=== PATIENT | male | born 1930 | race Caucasian/White ===

== ENCOUNTER → 2018-10-19 | Outpatient (CLI) | payer MEDICARE, BC ==
[~2018-10-19] MED LIST: ACE325 PO; ACET-2043 PO; BARIUM SULFATE 176 GM BTL PO ONE; BARIUM SULFATE 340 GM POWD ONE; CYCL1DRO6 OP; ERG400 PO; ERGO400T9 PO; FAM20 PO; FLAX100042 PO; FLUT16SP19 NS; GABA-503 PO; GLUC-198 PO; IBU600 PO; LEV500 PO; LOR5/325 PO; MET500 PO; METF-450 PO; NAPR-1043 PO; NAPR220C12 PO; NIA100 PO; OMEG-11 PO; OMEP-125 PO; OMEP-153 PO; OMEP10CA40 PO; OMEP40CA45 PO; OMEP40CA48 PO; PHENA200 PO; POLY17PO25 PO; TAM4 PO; TAMS0.4C70 PO; VITA100C13 PO; VITE400 PO; [UNRECOGNIZED DRUG - CODE] PO; [UNRECOGNIZED DRUG - CODE] PO; [UNRECOGNIZED DRUG - CODE] PO
--- NOTE | 2018-10-19 17:15 | RADIOLOGY IMAGING REPORT ---
FACILITY: [facility] [place] PATIENT NAME: Tong Braun : 1930 MR: [id number] V: [id number] EXAM DATE: ORDERING PHYSICIAN: WILLOW TODD TECHNOLOGIST: Location: [facility] Patient: Tong Braun : 1930 Visit/Account:[id number] Date of Sevice: 10/19/2018 Exam type: ESOPHAGRAM History: GERD and trouble swallowing pills and crackers Comparison: None. Findings: Double contrast esophagram was performed with thick and thin barium and air contrast.. There was christine e pooling of residual barium within the vallecula and piriform sinuses. No aspiration was observed. There is a small hiatal hernia and moderate narrowing noted at the lower esophageal sphincter. A 12 mm barium tablet did eventually pass through the lower esophageal sphincter however there was delaye d passage which required multiple sips of water and barium. Extensive tertiary waves were noted thro ughout the esophagus. There was at least moderate gastroesophageal reflux observed. No mucosal eros ions were identified. The fluoroscopy dose area product was 282.52 micro-Smith per meter squared IMPRESSION: 1. Small hiatal hernia with moderate narrowing at the lower esophageal sphincter. There was delayed passage of a 12 mm barium tablet which did eventually pass into the stomach. Extensive tertiary waves were noted throughout the esophagus although no mucosal erosions were identi fied There was some pooling of residual barium within the vallecula and perform sinuses although no aspira tion was observed Report Dictated By: Sarah Nunez MD at 10/19/2018 5:06 PM Report E-Signed By: Sarah Nunez MD at 10/19/2018 5:10 PM WSN:[email or web address]
== END ==
LOC: RAD 00:18
PROVIDERS: ATTEND Otolaryngology
DX: K46.1 Unspecified abdominal hernia with gangrene (principal)
CPT/HCPCS: 74220

== ENCOUNTER → 2018-12-07 | Outpatient (CLI) | payer MEDICARE, BC ==
[~2018-12-07] MED LIST changes: -BARIUM SULFATE 176 GM BTL PO ONE; -BARIUM SULFATE 340 GM POWD ONE; +CIPR-214 PO; -GABA-503 PO; +GABA-533 PO
[2018-12-07 17:07] LABS: PLATELET COUNT, AUTOMATED 264 K/uL (150-450)
== END ==
LOC: LAB 16:39
PROVIDERS: ATTEND Family Medicine
DX: E11.9 Type 2 diabetes mellitus without complications (principal); I10 Essential (primary) hypertension
CPT/HCPCS: 36415; 82310; 82374; 82435; 82565; 82947; 83036; 84132; 84295; 84520; 85025

== ENCOUNTER → 2018-12-30 | Day surgery (SDC) | payer MEDICARE, BC ==
[~2018-12-30] VITALS: Ht 170.2 cm; Wt 64.4 kg
[2018-12-30] VITALS (8 sets, daily range): BP systolic 76–128; BP diastolic 47–67
[~2018-12-30] MED LIST changes: +LIDOCAINE MPF 1% 5 ML VIAL ONE; +LIDOCAINE/SOD BICARB 8.4% SYR ID ONE; +PROPOFOL EMUL(*) 10MG/ML 20 ML 20 ML ONE
[2018-12-30] MEDS: NORMOSOL R SOLN(*) 1000 ML BAG 1,000 ML IV PRN ×2 (08:26→11:08)
--- NOTE | 2018-12-30 11:08 | Short(Outpt) Discharge Summary ---
Discharge Summary Reason for Hosp/Final Diag: (1) Dysphagia Hospital Course & Plan: 88 yo m presented for egd. he tolerated the procedure well and there were no complications. path pending. pt will be discharged home when criteria met. Discharge Instructions Home Meds Active Scripts Omeprazole (OMEPRAZOLE) 40 Mg Capsule.dr, 40 MG PO BID for 30 Days, #60 CAP 2 Refills Prov:WILLOW TODD JR, MD 11/09/18 Metformin Hcl (METFORMIN HCL) 500 Mg Tablet, 1 TAB PO BID for 90 Days, #180 TAB 4 Refills Prov:CHRISTIAN SAUCEDA MD 06/08/18 Fluticasone Prop 50 Mcg Ns (FLONASE 50 MCG NS) 16 Gm Kent.susp, 2 SPRAYS NS QDAY for 30 Days, #1 BOT 3 Refills Prov:CHRISTIAN SAUCEDA MD 06/08/18 Reported Medications Ciprofloxacin 500 Mg Tab (CIPROFLOXACIN 500 MG TAB) 500 Mg Tablet, 500 MG PO Q12H for 15 Days, #14 TAB 11/30/18 [place]-3 Fatty Acids/Fish Oil (FISH OIL 1,000 MG CAPSULE) 1 Each Capsule, 1 EACH PO DAILY, CAPSULE 03/09/18 Tamsulosin Hcl (TAMSULOSIN HCL) 0.4 Mg Cap.er.24h, 1 CAP PO BID 06/15/17 Diet: Regular Activity: As Tolerated Special Instructions: we will call you with biopsy results JUANITO SANTANA Dec 30, 2018 11:08
== END ==
LOC: OR 00:50
PROVIDERS: ATTEND Surgery
DX: K29.70 Gastritis, unspecified, without bleeding (principal); K26.9 Duodenal ulcer, unspecified as acute or chronic, without hemorrhage or perforation; K21.9 Gastro-esophageal reflux disease without esophagitis; E11.9 Type 2 diabetes mellitus without complications; Z79.84 Long term (current) use of oral hypoglycemic drugs
CPT/HCPCS: 36416; 43239; 43249; 82948; 87077; 88305; 88313; C1726; J2001; J2704

== ENCOUNTER → 2019-02-08 | Outpatient (CLI) | payer MEDICARE, BC ==
[~2019-02-08] MED LIST changes: -LIDOCAINE MPF 1% 5 ML VIAL ONE; -LIDOCAINE/SOD BICARB 8.4% SYR ID ONE; -PROPOFOL EMUL(*) 10MG/ML 20 ML 20 ML ONE
== END ==
LOC: LAB 10:28
PROVIDERS: ATTEND Otolaryngology
DX: K20.0 Eosinophilic esophagitis (principal)
CPT/HCPCS: 36415; 86003

== ENCOUNTER → 2019-03-08 | Outpatient (CLI) | payer MEDICARE, BC | LOC: LAB 15:00 | PROVIDERS: ATTEND Family Medicine | DX: E11.9 Type 2 diabetes mellitus without complications (principal) | CPT/HCPCS: 36415; 82040; 82247; 82310; 82374; 82435; 82565; 82947; 83036; 84075; 84132; 84155; 84295; 84450; 84460; 84520 ==

== ENCOUNTER → 2019-04-05 | Outpatient (CLI) | payer MEDICARE, BC ==
--- NOTE | 2019-04-05 15:05 | RADIOLOGY IMAGING REPORT ---
FACILITY: [facility] [place] PATIENT NAME: Tong Braun : 1930 MR: [id number] V: [id number] EXAM DATE: ORDERING PHYSICIAN: BECKY LORENZANA TECHNOLOGIST: Location: [facility] - [place], [place] Patient: Tong Braun : 1930 Visit/Account:[id number] Date of Sevice: 04/05/2019 US ABD LIMITED ULTRASOUND, bladder ultrasound HISTORY: Incomplete bladder emptying, incontinence COMPARISON: None. FINDINGS: The urinary bladder prevoid volume was 190 mL. The post void residual was 132 mL. Bilateral uretera l jets are present. Incidentally noted is a right-sided bladder diverticulum measuring 1.6 x 2 x 1.2 cm. The prostate gland appeared slightly inhomogeneous impinging upon the floor the bladder and sirisha sured 3.8 x 4 x 6.2 cm IMPRESSION: Post void bladder residual 132 mL Right-sided bladder diverticulum Prostate gland appears prominent, inhomogeneous and impinged upon the floor the urinary bladder Report Dictated By: Sarah Nunez MD at 04/05/2019 2:37 PM Report E-Signed By: Sarah Nunez MD at 04/05/2019 3:00 PM WSN:[email or web address]
== END ==
LOC: US 00:41
DX: R39.14 Feeling of incomplete bladder emptying (principal)
CPT/HCPCS: 76705

== ENCOUNTER → 2019-04-26 | Outpatient (CLI) | payer MEDICARE, BC ==
[~2019-04-26] MED LIST changes: +FINA5TAB67 PO; -OMEP-125 PO; +OMEP-126 PO; -OMEP10CA40 PO; +OMEP10CA41 PO
== END ==
LOC: US 07:00
PROVIDERS: ATTEND Family Medicine
DX: I07.1 Rheumatic tricuspid insufficiency (principal); I35.0 Nonrheumatic aortic (valve) stenosis
CPT/HCPCS: 93306

== ENCOUNTER 2019-05-08 01:34 | Observation (INO) | payer MEDICARE, BC ==
[~2019-05-08] VITALS: Ht 170.2 cm; Wt 63.5 kg
[2019-05-08] VITALS (13 sets, daily range): BP systolic 102–134; BP diastolic 47–82
[2019-05-08] MEDS ORDERED: LIDOCAINE/SOD BICARB 8.4% SYR ID ONE (10:30)
[2019-05-08] MEDS ORDERED: FAMOTIDINE 20 MG TAB PO ONE (10:30)
[2019-05-08] MEDS ORDERED: MIDAZOLAM 2 MG/2 ML VIAL IVP PRN (10:30)
[2019-05-08] MEDS ORDERED: NORMOSOL R SOLN(*) 1000 ML BAG 1,000 ML IV PRN (10:30)
[2019-05-08] MEDS ORDERED: cefTRIAXone(*) 1 GM VIAL 1 GM in NS(*) 0.9% 100 ML MINI-BAG 100 ML IVPB ONE (10:30)
[2019-05-08] MEDS ORDERED: PROPOFOL EMUL(*) 10MG/ML 20 ML 20 ML ONE (10:52)
[2019-05-08] MEDS ORDERED: ONDANSETRON 4 MG/2 ML VIAL ONE (10:52)
[2019-05-08] MEDS ORDERED: DEXAMETHASONE SOD 4 MG/ML VIAL ONE (10:52)
[2019-05-08] MEDS ORDERED: LIDOCAINE MPF 1% 5 ML VIAL ONE (10:52)
[2019-05-08] MEDS ORDERED: fentaNYL CITR 100 MCG/2 ML AMP ONE (10:53)
[2019-05-08] MEDS ORDERED: VANCOMYCIN(*) 1 GM VIAL 1 GM in NS(*) 0.9% 250 ML BAG 250 ML IVPB ONE (11:35)
[2019-05-08] MEDS ORDERED: MIDAZOLAM 2 MG/2 ML VIAL ONE (11:46)
[2019-05-08 11:48] LABS: PLATELET COUNT, AUTOMATED 193 K/uL (150-450)
--- NOTE | 2019-05-08 12:12 | EKG ---
FACILITY: [facility] PATIENT NAME: KAROLINA JACKSON : [id number] MR: [id number] V: [id number] EXAM DATE: ORDERING PHYSICIAN: JACINDA RODRIGUEZ TECHNOLOGIST: LIVAN Test Reason : PREOP-CYSTO Blood Pressure : / mmHG Vent. Rate : 071 BPM Atrial Rate : 071 BPM P-R Int : 190 ms QRS Dur : 084 ms QT Int : 386 ms P-R-T Axes : 048 -60 029 degrees QTc Int : 419 ms Sinus rhythm Left axis No acute appearing findings No previous ECGs available Confirmed by TRE PERAZA ([id number]) on 05/08/2019 4:16:36 PM Referred By: HARRIETT Confirmed By:TRE PERAZA
[2019-05-08] MEDS ORDERED: BELLADONNA ALK/OPIUM 60MG SUPP PR ONE (12:22)
[2019-05-08] MEDS ORDERED: MINERAL OIL LIGHT 10 ML VIAL ONE (12:22)
[2019-05-08 14:24] LABS: PLATELET COUNT, AUTOMATED 179 K/uL (150-450)
[2019-05-08] MEDS ORDERED: GLYCOPYRROLATE 0.2MG/ML 1 ML INJ ONE (14:40)
--- NOTE | 2019-05-08 15:38 | Hospitalist Progress Note ---
Subjective Progress Notes Subjective Patient seen post-op. Reviewed PMHx (type 2 DM) and medications (metformin). He reports doing well. No CP/abdominal pain/SOB/FUNG/nausea. Physical Exam Vital Signs Date Time Temp Pulse Resp B/P (MAP) Pulse Ox O2 Delivery O2 Flow Rate FiO2 05/08/19 15:20 72 18 90 05/08/19 15:20 97.7 118/59 (78) Room Air General Appearance: Alert, Awake Cardiovascular: Regular Rate and Rhythm (with soft systolic murmur) Respiratory: Clear to Auscultation Result Diagram: 05/08/19 1417 05/08/19 1417 Assessment and Plan Problems: (1) DM (diabetes mellitus) Status: Chronic Assessment & Plan: Will place on ADA diet, resume his metformin, monitor glucose, and use SSI as needed. (2) BPH (benign prostatic hyperplasia) Status: Chronic Assessment & Plan: S/P TURP with Dr. Esqueda. Problem Qualifiers (1) DM (diabetes mellitus): Diabetes mellitus type: type 2 TRE PERAZA MD May 08, 2019 15:38
[2019-05-08] MEDS ORDERED: GLYCOPYRROLATE 0.2MG/ML 1 ML INJ IVP PRN (15:55)
[2019-05-08] MEDS ORDERED: PROPANTHELINE BROMIDE 15MG TAB PO PRN (15:55)
[2019-05-08] MEDS ORDERED: PCA LOCKBOX KEYS XX PRN (15:55)
[2019-05-08] MEDS ORDERED: NALOXONE HCL 0.4 MG/ML VIAL IVP PRN (15:55)
[2019-05-08] MEDS ORDERED: ONDANSETRON 4 MG/2 ML VIAL IVP PRN (15:55)
[2019-05-08] MEDS ORDERED: LR(*) 1000 ML BAG 1,000 ML IV PRN (15:55)
[2019-05-08] MEDS ORDERED: FLUSH 10 ML SYR IVP PRN (15:55)
[2019-05-08] MEDS ORDERED: HYDROMORPHON PCA10MG/50ML(CII) 10 MG/50 ML PLAST..BAG IV PRN (15:55)
[2019-05-08] MEDS ORDERED: BELLADONNA ALK/OPIUM 60MG SUPP PR PRN ×3 (15:55→16:05)
[2019-05-08] MEDS ORDERED: ZOLPIDEM TARTRATE 5 MG TAB PO PRN (15:55)
[2019-05-08] MEDS ORDERED: WATER FOR IRRIG,STERILE 3000ML 3,000 ML IR PRN (16:05)
[2019-05-08] MEDS ORDERED: INSULIN HUM LISPRO 100 UN/ML 3 ML VIAL SUBQ PRN (17:05)
--- NOTE | 2019-05-08 17:54 | OPERATIVE REPORT 1 ---
EVENT DATE: May 08, 2019 SURGEON: Berto Esqueda MD ANESTHESIOLOGIST: Stephane Koo MD ANESTHESIA: Subarachnoid block anesthesia. PREOPERATIVE DIAGNOSES 1. 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 2. Large postvoid residual. 3. Intractable cystoprostatitis. POSTOPERATIVE DIAGNOSES 1. 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 2. Large postvoid residual. 3. Intractable cystoprostatitis. PROCEDURES PERFORMED 1. Cystourethroscopy. 2. Transurethral resection of the prostate. 3. Vaporization of the prostate. DESCRIPTION OF PROCEDURE Under subarachnoid block anesthesia, the patient was prepped and draped in the extended lithotomy position. The 21 panendoscope admitted through the urethra into the bladder. The urethra was normal. The prostate showed trilobar hyperplasia with obstruction. Verumontanum was in the ventral portion of the prostatic urethra at the apex. Moderate median lobe that extended to the trigone. The prostate was fairly deep in its AP diameter. Bladder showed 4+ trabeculation with multiple diverticula. Trigone and ureteral orifices were normal. No other demonstrable lesions in the bladder. The bladder filled under gravity flow and was measured a total of approximately 900 mL. On drainage of the bladder, there was no bloody drainage. On reinspection of the bladder, there were no glomerulations. The resection was begun by resecting the median lobe back to the verumontanum. The tissue was resected down to the circular fibers at the bladder neck circumferentially. Bleeding was controlled with spot coagulation. Right and left lateral lobe tissue was resected, and posterior tissue was resected with a finger in the rectum. The _apical____ tissue was resected at conclusion of the procedure. Bleeding appeared to be satisfactorily controlled with spot coagulation. Chips were evacuated from the bladder. The entire prostate capsule was vaporized. Again, the bleeding appeared to be satisfactorily controlled. The bladder was filled under gravity flow and was measured. The scope was withdrawn. There was good efflux of irrigation fluid. It cut off almost immediately upon withdrawal of the scope. Estimated blood loss less than 100 mL. A #20 Johnson three-way was placed per urethra into the bladder. The irrigation was satisfactory at conclusion of the procedure. Patient returned to the recovery room in satisfactory condition. This is an 89-year-old white male complaining of intractable cystoprostatitis. 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 The patient had been known to have a significant residual in the 500 mL area for several years. Options were carefully discussed with the patient and with his primary caregiver, Dr. Gaines, as to recommendations to prevent hopefully future infections. Patient subsequently had his preop medical workup and was agreeable to evaluation and treatment. That has been accomplished. See operative note for details. Patient will be ready for discharge home in a.m. if all is going well. He is to force fluids, 2 L per day. Activities are restricted to careful ambulation. He is to continue his usual medications. A copy of instructions was given to the patient. He will be discharged on Macrobid, Pepcid, Colace, Pyridium, and Tylenol No. 3 therapy in addition to his usual medications. MTDD
[2019-05-08] MEDS: NEOMYCIN/POLYMYX/BACITR OINT 1 PACKET TP SCH (20:32)
[2019-05-08] MEDS: DOCUSATE SODIUM 100 MG CAP PO SCH (20:33)
[2019-05-08] MEDS: FAMOTIDINE 20 MG TAB PO SCH (20:33)
[2019-05-08] MEDS: BENZALKONIUM CL 1:750 TOP SOLN TP SCH (20:33)
[2019-05-08] MEDS: metFORMIN HCL XR 500 MG TABCR PO SCH (22:01)
[2019-05-09 03:28] VITALS: BP 117/58
[2019-05-09 07:11] VITALS: BP 127/65
[2019-05-09] MEDS: metFORMIN HCL XR 500 MG TABCR PO SCH (07:47)
[2019-05-09] MEDS: DOCUSATE SODIUM 100 MG CAP PO SCH (08:43)
[2019-05-09] MEDS: FAMOTIDINE 20 MG TAB PO SCH (08:43)
[2019-05-09] MEDS: BENZALKONIUM CL 1:750 TOP SOLN TP SCH (08:44)
[2019-05-09] MEDS: NEOMYCIN/POLYMYX/BACITR OINT 1 PACKET TP SCH (08:44)
[2019-05-09] MEDS ORDERED: cefTRIAXone(*) 1 GM VIAL 1 GM in NS(*) 0.9% 100 ML MINI-BAG 100 ML IVPB SCH (09:00)
[2019-05-09 09:09] VITALS: Ht 170.2 cm; Wt 63.5 kg
[2019-05-09] MEDS ORDERED: DOCU-416 PO (10:02)
[2019-05-09] MEDS ORDERED: PHEN200T32 PO (10:03)
[2019-05-09] MEDS ORDERED: ACET-3017 PO (10:03)
[2019-05-09] MEDS ORDERED: FAMO20TA28 PO (10:04)
[2019-05-09] MEDS ORDERED: VANCOMYCIN(*) 1 GM VIAL 1 GM in NS(*) 0.9% 250 ML ADDVAN BAG 250 ML IVPB SCH ×2 (11:45)
--- NOTE | 2019-05-09 12:37 | Hospitalist Progress Note ---
Subjective Progress Notes Subjective He was admitted s/p TURP. He had no acute events overnight. He would like to go home today. Patient Complains of: Cardiovascular: No: Chest Pain Respiratory: No: Shortness of Breath Physical Exam Vital Signs Date Time Temp Pulse Resp B/P (MAP) Pulse Ox O2 Delivery O2 Flow Rate FiO2 05/09/19 10:21 Room Air 05/09/19 08:20 92 05/09/19 07:11 98.0 67 18 127/65 (85) Intake and Output 05/09/19 01:01 Intake Total 8430 ml Output Total 7500 ml Balance 930 ml Intake Oral 480 ml IV Total 1700 ml Other 6250 ml Output Urine Total 1250 ml Other 6250 ml General Appearance: Alert, Awake, No Acute Distress, Afebrile Neuro: No Gross deficits Cardiovascular: Regular Rate and Rhythm Respiratory: No Respiratory Distress, Clear to Auscultation Psych: Alert & Oriented X3, Appropriate Mood & Affect Result Diagram: 05/08/19 1417 05/08/19 1417 Assessment and Plan Problems: (1) BPH (benign prostatic hyperplasia) Status: Chronic Assessment & Plan: S/P TURP with Dr. Esqueda. (2) DM (diabetes mellitus) Status: Chronic Assessment & Plan: Will place on ADA diet, resume his metformin, monitor gluco se, and use SSI as needed. Exam Sepsis Risk: No Definite Risk Problem Qualifiers (1) DM (diabetes mellitus): Diabetes mellitus type: type 2 CELY HARMAN DIRECTOR ADVERTISING May 09, 2019 12:37
== END 2019-05-09 10:06 | disposition home health service (06) ==
LOC: OR 01:34 → MED 13:20
DX: N40.1 Benign prostatic hyperplasia with lower urinary tract symptoms (principal); R39.198 Other difficulties with micturition; N41.8 Other inflammatory diseases of prostate; E11.9 Type 2 diabetes mellitus without complications; N40.0 Benign prostatic hyperplasia without lower urinary tract symptoms
CPT/HCPCS: 36415; 36416; 52648; 82948; 85025; 88305; 93005; 96372; A4346; A9270; G0378; J0696; J1100; J1815; J2001; J2250; J2405; J2704; J3010; J3370; J3490; J7050; J7120; 82310; 82374; 82435; 82565; 82947; 84132; 84295; 84520

== ENCOUNTER → 2019-05-13 | Outpatient (REF) | payer MEDICARE, BC ==
[2019-05-09 09:09] VITALS: BMI 21.9
[~2019-05-13] MED LIST changes: +ACET-3017 PO; +DOCU-416 PO; +FAMO20TA28 PO; +PHEN200T32 PO
== END ==
LOC: LAB 08:18 → ZZSENDIN 08:24 → EDSTATUS 08:24
DX: R19.5 Other fecal abnormalities (principal)
CPT/HCPCS: 82274

== ENCOUNTER 2019-05-31 15:26 | Emergency (ER) | payer MEDICARE, BC ==
[2019-05-09 09:09] VITALS: Wt 67.6 kg
--- NOTE | 2019-05-31 15:43 | ER Report ---
History and Physical Time Seen By MD: 15:34 HPI/ROS CHIEF COMPLAINT: Blood in urine and dark stools HISTORY OF PRESENT ILLNESS: This is an 89-year-old male presents to emergency department for hematuria and dark stools. Patient is status post TURP 05/09/2019, procedure well, patient states he had no residual bleeding after the TURP, then 2 weeks ago developed some intermittent hematuria. No clots that he's noted. Was started on antibiotics as he was told by Dr. Lorenzana he had a urinary tract infection, he states that today he developed some diarrhea, dark in color, no bright red blood. He also states that he finished the antibiotics 3 days ago. No abdominal pain. He states he has mild discomfort when he begins to urinate however the begins to resolve once the urine stream has begun. He denies fevers or chills, no nausea or vomiting, no chest pain or shortness of breath. He was instructed to come into the emergency department by urology. REVIEW OF SYSTEMS: Constitutional: No fever, no chills. Eyes: No discharge. ENT: No sore throat. Cardiovascular: No chest pain, no palpitations. Respiratory: No cough, no shortness of breath. Gastrointestinal: As above. Genitourinary: As above. Musculoskeletal: No back pain. Skin: No rashes. Neurological: No headache. Allergies: Uncoded Allergies: HAYFEVER (Allergy, Intermediate, UNKNOWN, 04/27/12) Home Meds Active Scripts Cephalexin 500 Mg Tab (KEFLEX 500 MG TAB) 500 Mg Tablet, 500 MG PO Q6H, #28 TAB Prov:CELINA SIEGEL DREDGE OPERATOR SUPERVISOR- 05/31/19 Metformin Hcl (METFORMIN HCL) 500 Mg Tablet, 1 TAB PO BID for 90 Days, #180 TAB 4 Refills Prov:CHRISTIAN SAUCEDA MD 06/08/18 Reported Medications Tamsulosin Hcl (TAMSULOSIN HCL) 0.4 Mg Cap.er.24h, 1 CAP PO QDAY 06/15/17 Past Medical/Surgical History Patient has a past medical and surgical history of heart murmur, Hanson's esophagus, occasional GERD, hiatal hernia, urinary incontinence, TURP, GERD tract infections, prostate biopsy, arthritis, right arm fracture, wears glasses, type II diabetes, hand surgery, tonsillectomy. Reviewed Nurses Notes: Yes Hx Smoking: No Smoking Status: Never Smoker Hx Alcohol Use: No Constitutional Vital Sign - Last 24 Hours 05/31/19 05/31/19 05/31/19 05/31/19 15:40 15:42 16:00 16:30 Temp 97.8 Pulse 79 66 Resp 16 B/P (MAP) 137/91 137/91 (106) 120/76 (91) 122/63 (82) Pulse Ox 93 92 89 05/31/19 05/31/19 17:00 17:30 Pulse 64 62 B/P (MAP) 104/68 (80) 120/68 (85) Pulse Ox 90 92 Physical Exam General Appearance: The patient is alert, has no immediate need for airway protection and no signs of toxicity. Eyes: Pupils equal and round no pallor or injection. ENT, Mouth: Mucous membranes are dry. Respiratory: There are no retractions, lungs are clear to auscultation. Cardiovascular: Regular rate and rhythm. No murmurs, clicks or rubs. Gastrointestinal: Abdomen is soft and non tender, no masses, bowel sounds normal. Neurological: Alert and oriented 4. Moving all extremities. Following all co mmands. No focal neuro deficits. Skin: Warm and dry, no rashes. Musculoskeletal: Neck is supple non tender. Extremities are nontender, nonswollen and have full range of motion. DIFFERENTIAL DIAGNOSIS: After history and physical exam differential diagnosis was considered for urinary tract infection, upper GI bleed, gastroenteritis, post antibiotic diarrhea, postsurgical complication. Medical Decision Making Data Points Result Diagram: 05/31/19 1542 05/31/19 1542 Laboratory Hematology Test 05/31/19 15:42 White Blood Count 7.9 k/uL (4.5-11.0) Red Blood Count 5.03 M/uL (4.00-5.60) Hemoglobin 15.8 g/dL (14.0-18.0) Hematocrit 45.3 % (42.0-52.0) Mean Corpuscular Volume 90.1 fL (80.0-96.0) Mean Corpuscular Hemoglobin 31.4 pg (26.0-33.0) Mean Corpuscular Hemoglobin Concent 34.8 g/dL (32.0-36.0) Red Cell Distribution Width 12.4 % (11.5-14.5) Platelet Count 252 K/uL (150-450) Mean Platelet Volume 8.9 fL (7.2-11.1) Neutrophils (%) (Auto) 61.0 % (39.4-72.5) Lymphocytes (%) (Auto) 26.4 % (17.6-49.6) Monocytes (%) (Auto) 9.1 % (4.1-12.4) Eosinophils (%) (Auto) 2.4 % (0.4-6.7) Basophils (%) (Auto) 1.1 % (0.3-1.4) Nucleated RBC Relative Count (auto) 0.0 /100WBC Neutrophils # (Auto) 4.8 K/uL (2.0-7.4) Lymphocytes # (Auto) 2.1 K/uL (1.3-3.6) Monocytes # (Auto) 0.7 K/uL (0.3-1.0) Eosinophils # (Auto) 0.2 K/uL (0.0-0.5) Basophils # (Auto) 0.1 K/uL (0.0-0.1) Nucleated RBC Absolute Count (auto) 0.00 K/uL Chemistry Test 05/31/19 15:42 Sodium Level 141 mmol/L (137-145) Potassium Level 4.3 mmol/L (3.5-5.0) Chloride Level 107 mmol/L (98-107) Carbon Dioxide Level 25 mmol/L (22-30) Blood Urea Nitrogen 19 mg/dl (9-21) Creatinine 1.00 mg/dl (0.66-1.25) Glomerular Filtration Rate Calc > 60.0 Random Glucose 112 mg/dl (75-110) Calcium Level 9.5 mg/dl (8.4-10.2) Total Bilirubin 0.8 mg/dl (0.2-1.3) Aspartate Amino Transf (AST/SGOT) 21 U/L (0-35) Alanine Aminotransferase (ALT/SGPT) 27 U/L (0-56) Alkaline Phosphatase 98 U/L (0-126) Total Protein 7.2 g/dl (6.3-8.2) Albumin 4.2 g/dl (3.5-5.0) Urinalysis Test 05/31/19 15:37 Urine Color [place] Urine Clarity Turbid Urine pH 6.0 pH (4.8-9.5) Urine Specific [place] 1.018 Urine Protein 100 mg/dL (NEGATIVE) Urine Glucose (UA) 50 mg/dL (NEGATIVE) Urine Ketones Trace mg/dL (NEGATIVE) Urine Blood Large (NEGATIVE) Urine Nitrite Negative (NEGATIVE) Urine Bilirubin Negative (NEGATIVE) Urine Urobilinogen Negative mg/dL (0.2-1.9) Urine Leukocyte Esterase Moderate (NEGATIVE) Urine RBC 5975 /HPF (0-2/HPF) Urine WBC 936 /HPF (0-5/HPF) Urine WBC Clumps Many /HPF Urine Squamous Epithelial Cells Many /LPF (</=FEW) Urine Bacteria Negative /HPF (NONE-FEW) Urine Mucus Few /HPF (NONE-FEW) Urine Yeast (Budding) Few /HPF ED Course/Re-evaluation Clinical Indication for ER IV: Hydration, IV Access ED Course The patient was admitted to room. A history and physical were obtained. Differential diagnoses were considered. An IV was started. A 500 mL normal saline bolus was given. A CBC, CMP were obtained. A UA was collected. Lab studies unremarkable.UA showing large urine white blood cells, with clumps of white blood cells, leukocyte esterase, large blood ketonuria and yeast, urine culture was sent. I did review the laboratory studies with the patient, I did tell him that I will go ahead and treat him for urinary tract infection as he is having symptoms, patient will be started on Keflex, instructed follow up with Dr. Lorenzana for reevaluation. Patient was understanding and questions or concerns at this time discharged home. Negative occult stool. 05/31/2019 4:33:34 pm rectal exam negative for hemorrhoids, no gross blood noted on the gloved finger, stool was brown and formed, sample was obtained and sent to the lab. Decision to Disposition Date: May 31, 2019 Decision to Disposition Time: 17:26 Depart Departure Latest Vital Signs Vital Signs Date Time Temp Pulse Resp B/P (MAP) Pulse Ox O2 Delivery O2 Flow Rate FiO2 05/31/19 17:30 62 120/68 (85) 92 05/31/19 15:40 97.8 16 Impression: Primary Impression: Urinary tract infection Condition: Improved Disposition: HOME OR SELF-CARE Referrals: CHRISTIAN SAUCEDA MD (PCP) BECKY LORENZANA MD 5 Days New Scripts Cephalexin 500 Mg Tab (KEFLEX 500 MG TAB) 500 Mg Tablet 500 MG PO Q6H, #28 TAB Prov: CHRISTALCELINA Goodman DREDGE OPERATOR SUPERVISOR-BC 05/31/19 Patient Instructions: Urinary Traction Infection in Older Adults (ED) Additional Instructions: It appears that you have a recurrent urinary tract infection, the antibiotics you were on did not work, we will start she will on Keflex 4 times a day for 7 days. Be sure to take the antibiotics as prescribed. Please follow-up with Dr. Lorenzana this week for reevaluation. There was no blood noted in your stool. Please stop taking the MiraLAX. Be sure to drink plenty of water. Follow-up with Dr. Sauceda as scheduled. Get plenty of rest. Return to the emergency department for any other concerns or worsening symptoms. Problem Qualifiers Primary Impression: Urinary tract infection Urinary tract infection type: acute cystitis Hematuria presence: with hematuria Qualified Codes: N30.01 - Acute cystitis with hematuria CELINA SIEGEL DREDGE OPERATOR SUPERVISOR-BC May 31, 2019 15:43
[2019-05-31] MEDS ORDERED: NS(*) 0.9% 500 ML BAG 500 ML IV ONE (15:55)
[2019-05-31 16:04] LABS: PLATELET COUNT, AUTOMATED 252 K/uL (150-450)
[2019-05-31 17:30] VITALS: BP 120/68
[2019-05-31] MEDS ORDERED: CEPH500T7 PO (17:30)
== END 2019-05-31 17:57 | disposition home or self-care (01) ==
LOC: ER 15:37
DX: N30.01 Acute cystitis with hematuria (principal)
CPT/HCPCS: 81001; 82274; 85025; 87088; 96360; 99283; J7040; 82040; 82247; 82310; 82374; 82435; 82565; 82947; 84075; 84132; 84155; 84295; 84450; 84460; 84520